=== PATIENT | male | born 1995 | race Hispanic/Latino ===

== ENCOUNTER 2021-08-11 19:55 | Emergency (ER) | payer OTHER ==
[~2021-08-11] VITALS: Ht 177.8 cm; Wt 112.0 kg
[2021-08-11] MEDS ORDERED: CEFDINIR300 MG PO (20:19)
[2021-08-11] MEDS ORDERED: CLARITIN-D 241 EACH PO (20:19)
[2021-08-11] MEDS ORDERED: PATADAY5 ML OU (20:22)
== END 2021-08-11 20:45 | disposition home or self-care (01) ==
LOC: FSED 20:12
DX: H66.91 Otitis media, unspecified, right ear (principal); H10.023 Other mucopurulent conjunctivitis, bilateral; J30.9 Allergic rhinitis, unspecified; R05.9 Cough, unspecified
CPT/HCPCS: 99282